=== PATIENT | male | born 1990 ===

== ENCOUNTER → 2017-07-03 | Outpatient (REF) | payer OTHER ==
[2017-07-08 14:15] LABS: HEMOGLOBIN A 63.5 % (94.0-98.0); HEMOGLOBIN S 32.3 % (0.0)
== END ==
LOC: M LAB REF 13:52
PROVIDERS: ATTEND Surgery
DX: Z01.818 Encounter for other preprocedural examination (principal); Z13.0 Encounter for screening for diseases of the blood and blood-forming organs and certain disorders involving the immune mechanism